=== PATIENT | female | born 1935 | race Caucasian/White ===

== ENCOUNTER 2023-09-12 14:42 | Outpatient (RCR) | payer MEDICARE, SELFPAY | END 2023-09-12 23:59 | disposition home or self-care (01) | LOC: RPT 14:42 | PROVIDERS: ATTENDING PHYSICIAN Student in an Organized Health Care Education/Training Program | DX: I89.0 Lymphedema, not elsewhere classified (principal); M79.651 Pain in right thigh; Z73.6 Limitation of activities due to disability | CPT/HCPCS: 97110; 97162; 97535; 97760 ==

== ENCOUNTER 2023-09-19 15:15 | Outpatient (RCR) | payer MEDICARE, SELFPAY | END 2023-09-19 23:59 | disposition home or self-care (01) | LOC: RPT 15:15 | PROVIDERS: ATTENDING PHYSICIAN Student in an Organized Health Care Education/Training Program | DX: I89.0 Lymphedema, not elsewhere classified (principal); M79.651 Pain in right thigh; Z73.6 Limitation of activities due to disability | CPT/HCPCS: 97110; 97535 ==

== ENCOUNTER 2024-11-14 15:42 | Emergency (ER) | payer OTHER, SELFPAY ==
[2024-11-14 15:53] VITALS: BP 118/54
[2024-11-14 16:34] LABS: ALT (SGPT) 27 U/L (0-35); AST (SGOT) 25 U/L (14-36); Albumin 4.8 g/dl (3.5-5.0); Alkaline Phosphatase 60 U/L (38-126); Blood Urea Nitrogen 22 mg/dl (7-17); Calcium 11.0 mg/dl (8.4-10.2); Carbon Dioxide 23 mmol/L (22-30); Chloride 105 mmol/L (98-107); Glucose 166 mg/dl (70-99); Potassium 4.5 mmol/L (3.5-5.1); Sodium 138 mmol/L (135-145); Total Protein 7.2 g/dl (6.3-8.2); eGFR > 60.00
[2024-11-14 16:51] LABS: Hematocrit 38.6 % (37.0-47.0); Hemoglobin 12.5 g/dL (12.0-16.0); Mean Corp Hgb Conc. 32.4 g/dL (33.0-37.0); Mean Corpuscular Volume 92.6 fL (81.0-99.0); Nucleated Red Blood Cells % 0 %; Platelet Count 309 10^3/uL (130-400); Red Cell Dist. Width 13.8 % (11.5-14.5)
--- NOTE | 2024-11-14 18:16 | ED.CVA ---
History of Present Illness
General
Chief Complaint: CVA/TIA Symptoms
Time Seen by Provider: 11/14/24 18:04
Onset of Stroke Symptoms
Onset of symptoms known: No
Time pt last seen normal is known: No
History of Present Illness
History of Present Illness:
PAST MEDICAL HISTORY AND REVIEW OF OLD RECORDS
- The patient has been described with memory loss in the past, diabetes, high blood pressure, hyperlipidemia
Note:
CHIEF COMPLAINT(S)
Intermittent slurred speech and increased fatigue over the past several days, per the patients daughter.
HISTORY OF PRESENT ILLNESS
The patient is an 89-year-old female whose daughter reports intermittent slurred speech and increased fatigue over several days. The fatigue has been more pronounced today, with the patient sleeping more than usual. Currently, the patient does not
exhibit slurred speech and upon examination, her stroke scale is zero. The patient has no specific complaints and only admits to feeling fatigued upon questioning. Laboratory tests show a calcium level of 11.0; however, her complete blood count
(CBC) and other chemistry results are relatively unremarkable. The patients daughter has also reported recent diarrhea, raising concerns for dehydration.
ADDITIONAL HISTORY OBTAINED FROM SOURCES OTHER THAN THE PATIENT
Per the patients daughter, the patient experienced some diarrhea recently, and there is concern regarding possible dehydration.
PHYSICAL EXAM
General: Alert, no acute distress. Well-appearing.
Skin: Warm, dry.
Head: Normocephalic, atraumatic.
Neck: Supple, trachea midline.
Eye Ears, nose, mouth, and throat: Oral mucosa moist.
Cardiovascular: Normal peripheral perfusion, no edema.
Respiratory: Respirations are non-labored.
Gastrointestinal: Abdomen nondistended.
Back: Normal range of motion, normal alignment.
Musculoskeletal: Normal range of motion, normal strength.
Neurological: Alert and oriented to person, place, time, and situation, no focal neurological deficit observed. Stroke scale is 0.
Psychiatric: Cooperative, appropriate mood & affect.
PLAN
- Intravenous fluids are being administered to address possible dehydration.
- A computed tomography (CT) scan of the head was ordered from triage to assess for any neurological events.
DIFFERENTIAL DIAGNOSIS
The Differential Diagnosis includes, in no particular order and is not limited to:
- Transient ischemic attack (TIA)
- Dehydration
- Hypercalcemia
- Stroke
- Hypothyroidism
- Medication side effects
- Anemia
- Electrolyte imbalance
- Infection
- Neurological disorder
RADIOLOGY
- CT head personally reviewed and I see no acute abnormality
LABS
- White count and hemoglobin are normal, chemistries unremarkable however the calcium slightly high at 11.0 I reviewed old records and she did have calciums that were similar in the past.
UPDATE
- Daughter was concerned about possible dehydration we did give IV fluids. She has remained hemodynamically stable throughout her stay in the Emergency Department.
SUMMARY OF ENCOUNTER
The patient, an 89-year-old female, was seen in the emergency department due to concerns of intermittent slurred speech and increased fatigue over several days, with more pronounced fatigue noted today. The patient was not exhibiting slurred speech
during evaluation and had a stroke scale of zero. Her laboratory tests showed a calcium level of 11.0, which was slightly elevated, but her complete blood count and other chemistry results were unremarkable. Imaging via a CT scan of the head was
obtained to assess for neurological events, with initial independent review revealing no abnormalities, pending confirmation from a radiologist. The patient experienced recent diarrhea, suggesting possible dehydration, and was monitored for fluid
intake.
DISPOSITION
The disposition was not explicitly stated, although the patient appeared stable for outpatient management.
ASSESSMENT
The patient presented with increased fatigue and intermittent slurred speech, possibly due to dehydration, hypercalcemia, or other underlying causes such as transient ischemic attack or medication side effects. Differential diagnosis included
dehydration, hypercalcemia, or a transient neurological event.
EMERGENCY TREATMENTS ADMINISTERED
Intravenous fluids were administered to address suspected dehydration.
PLAN
- Intravenous fluids administration to manage potential dehydration.
- Monitoring of fluid intake and ability to drink water.
INDEPENDENT REVIEW OF LABS AND INTERPRETATION OF TESTS
My independent review of calcium level indicated it was slightly elevated at 11.0, while the complete blood count and other chemistry results appeared unremarkable.
My independent interpretation of the CT scan of the head showed no acute abnormalities, awaiting the radiologists review for confirmation.
MEDICAL DECISION MAKING
-Complexity of Data Reviewed: The differential diagnosis includes transient ischemic attack, dehydration, hypercalcemia, stroke, hypothyroidism, medication side effects, anemia, electrolyte imbalance, infection, or a neurological disorder.
-Data:
Category 1
Clinical information was obtained from the patients daughter regarding recent diarrhea and concerns of dehydration.
Category 2
My independent interpretation of the CT scan showed no acute findings.
-Risk:
Consideration of Admission/Observation: Escalation of care including admission/observation was considered given the complexity and risk of the patients presenting complaint and underlying condition. However, ultimately it was felt the patient was
safe for outpatient management with close follow-up. Reasoning: Work-up reassuring, does not reveal any acute life/organ threatening processes, patients symptoms well controlled upon reevaluation, reexamination is reassuring, vitals are stable,
patient agreeable with discharge, reliable for follow-up.
DIAGNOSIS
Possible Dehydration - ICD-10 E86.0
Hypercalcemia - ICD-10 E83.52
Unable to obtain IV access and the patient was able to drink water without any difficulty. She is not nauseated. She prefers to be discharged at this time as opposed to having an IV placed.
Past History
Past History
ED Past Medical History: HTN, Hypercholesterolemia and NIDDM
ED Past Surgical History: Bowel resection, Gynecological, Orthopedic and Other
Social History
Tobacco: Non-smoker
Alcohol: None
Drug: None
Personal: Partner (Common Law Marriage)
Living: with family
Employment: Employed
Family History
Family History: Other
Phy Exam
Physical Exam
Physical Exam:
See HPI
Course
Orders/Labs/Results
Orders:
Orders
11/14/24 15:59
CT Head W/o Iv Contrast Urgent
Comment:
Reason For Exam: r/o CVA
11/14/24 16:07
Complete Blood Count/With Diff Urgent
Comprehensive Metabolic Panel Urgent
11/14/24 18:15
0.9% Sodium Chloride 500 ml [Nss] 500 ml IV BOLUS
Abnormal Lab Results
11/14/24
16:07
RBC 4.17 L 10^6/uL
(4.20-5.40)
MCHC 32.4 L g/dL
(33.0-37.0)
MPV 12.7 H fL
(7.4-10.4)
Absolute Monos (auto) 0.7 H 10^3/uL
(0.1-0.6)
BUN 22 H mg/dl
(7-17)
Glucose 166 H mg/dl
(70-99)
Calcium 11.0 H mg/dl
(8.4-10.2)
11/14/24 16:07
11/14/24 16:07
Vital Signs
Initial and Last Documented VS:
Initial Vital Signs
Temp Pulse Resp BP Pulse Ox
36.5 C 65 18 118/54 96
11/14/24 15:53 11/14/24 15:53 11/14/24 15:53 11/14/24 15:53 11/14/24 15:53
Last Documented Vital Signs
Temp Pulse Resp BP Pulse Ox
36.5 C 65 18 118/54 96
11/14/24 15:53 11/14/24 15:53 11/14/24 15:53 11/14/24 15:53 11/14/24 18:18
*Pulse Oximetry
SaO2: 96
Oxygen Mode of Delivery: Room air
Patient hypoxic: no
*Critical Care Note
Total Time (30-74mins, 75-104mins- exclusive of procedures): Not Applicable
ED Attending Note
-
Portions of this chart may have been created with voice recognition software.� Occasional wrong word or��sound alike� substitutions may have occurred due to the inherent limitations of voice recognition software.
Discharge Plan
Departure
Prescriptions:
No Action
zolpidem 5 MG tablet
5 mg PO HSPRN PRN (Reason: insomnia)
Patient Comments:
10/01/2020: last filled 09/22/20, 30 tabs for 30 days from [id number]
vitamin A-vitamin C-vit E-min [Vision] 1 EACH tablet
1 tab PO BID
atenolol 50 MG tablet
25 mg PO BID
duloxetine 60 MG capsule,delayed release(DR/EC)
60 mg PO DAILY
mupirocin 1 APPLIC ointment
1 applic intranasal BID Qty: 1 0RF
Patient Comments:
Patient administered this medication @07:00 this morning. Patient started this medication on 02/01/21 in the morning.
Rx Instructions:
Has from previous procedure.
celecoxib 200 MG capsule
200 mg PO DAILY Qty: 30 0RF
Rx Instructions:
Take with food.
Do not take within 2 hours of Aspirin.
sennosides [senna] 1 TABLET tablet
2 tab PO BID 0RF
aspirin 325 MG tablet
325 mg PO DAILY Qty: 28 0RF
Rx Instructions:
Take daily x4 weeks for blood clot prevention.
magnesium hydroxide 30 ML suspension
30 ml PO DAILYPRN PRN (Reason: constipation) 0RF
docusate sodium 100 MG capsule
100 mg PO BID 0RF
oxycodone 5 MG tablet
5 mg PO Q6HPRN PRN (Reason: moderate-severe pain) Qty: 30 0RF
Rx Instructions:
1 tab moderate pain or 2 if pain severe
Dx total joint replacement
ongoing therapy
cefadroxil [Duricef] 500 MG capsule
500 mg PO Q12 Qty: 14 0RF
Rx Instructions:
Start night of discharge and take every 12 hours until finished.
Take probiotic while on antibiotic.
Saccharomyces boulardii 250 MG capsule
250 mg PO BID Qty: 14 0RF
Rx Instructions:
Over the counter. Take while on antibiotic.
If unavailable, choose another probiotic.
lisinopril 20 MG tablet
20 mg PO BID Qty: 0 0RF
Rx Instructions:
Hold if systolic blood pressure <130 while on Oxycodone.
amlodipine 5 MG tablet
5 mg PO DAILY Qty: 0 0RF
Rx Instructions:
Hold if systolic blood pressure <130 while on Oxycodone.
acetaminophen [Tylenol Extra Strength] 500 MG tablet
1,000 mg PO Q6H Qty: 0 0RF
Rx Instructions:
Do not exceed >4000 mg daily.
furosemide 20 MG tablet
20 mg PO DAILY Qty: 0 0RF
Rx Instructions:
Hold if systolic blood pressure <140 while on Oxycodone.
glucosamine HCl 1,500 MG tablet
1,500 mg PO QPM Qty: 0 0RF
Rx Instructions:
Resume in 1 week.
[place]-3 EC Softgel 1 CAPSULE Capsule
1 cap PO QPM Qty: 0 0RF
Rx Instructions:
Resume in 1 week.
cyclobenzaprine 10 mg tablet
10 mg PO BID PRN (Reason: muscle spasm) Qty: 14 0RF
atorvastatin 20 MG tablet
20 mg PO DAILY
metformin 500 MG tablet
500 mg PO DAILY
Patient Comments:
changed to once a day per patient due to diarrhea.
Referrals:
Amy Ernandez MD [Family Provider, Internal Medicine]
Interventions
Interventions:
*Risk Screen - Suicide Last Done: 11/14/24 15:58
*General Assessment Last Done: 11/14/24 15:58
*ED COVID-19 Vaccine History Last Done: 11/14/24 15:58
Discharge Date and Time
Print Language: CROATIAN
[2024-11-14 19:11] VITALS: BP 167/61
[2024-11-14 19:52] VITALS: BP 166/63
== END 2024-11-14 20:05 | disposition home or self-care (01) ==
LOC: EMR 15:42
PROVIDERS: EMERGENCY PHYSICIAN Emergency Medicine; FAMILY PHYSICIAN Student in an Organized Health Care Education/Training Program
DX: R47.81 Slurred speech (principal); R53.83 Other fatigue; E11.9 Type 2 diabetes mellitus without complications; E78.00 Pure hypercholesterolemia, unspecified; I10 Essential (primary) hypertension; E83.52 Hypercalcemia
CPT/HCPCS: 99284; 70450; 80053; 85025

== ENCOUNTER 2025-02-13 12:42 | Inpatient (IN) | payer OTHER, SELFPAY ==
[2025-02-13] VITALS (18 sets, daily range): BP systolic 99–176; BP diastolic 46–68; PULSE 71–74; O2SAT 97–98; BMI 26.6
--- NOTE | 2025-02-13 07:18 | ED.GENMED ---
History of Present Illness
<Johnny Damon PA-C - Last Filed: 02/13/25 08:56>
General
Chief Complaint: Fall
Source: patient and spouse
Time Seen by Provider: 02/13/25 07:04
History of Present Illness
History of Present Illness:
89 year old female presenting to the ER with EMS for evaluation after she experienced an accidental fall while getting up from bed to go to the bathroom last night noting that her walker collapsed causing her to fall, EMS noting significant
deformity to the LLE and patient with inability to ROM or ambulate 2/2 the pain. Patient denies any other injuries, head injury, LOC, vomiting, focal weakness/numbness, blood thinners. No other extremity injuries noted. Patient notes she has seen
[facility] in the past for previous orthopedic injuries.
Past History
<Johnny Damon PA-C - Last Filed: 02/13/25 08:56>
Past History
ED Past Medical History: HTN, Hypercholesterolemia and NIDDM
ED Past Surgical History: Bowel resection, Gynecological, Orthopedic and Other
Social History
Tobacco: Non-smoker
Alcohol: None
Drug: None
Personal: Partner (Common Law Marriage)
Living: with family
Employment: Employed
Family History
Family History: Other
Review of Systems
<Johnny Damon PA-C - Last Filed: 02/13/25 08:56>
Review of Systems
All Other Systems: ROS reviewed and negative except as documented in HPI and ROS
Phy Exam
<Johnny Damon PA-C - Last Filed: 02/13/25 08:56>
Physical Exam
Physical Exam:
GENERAL: Alert , in no apparent distress
EYE: clear conjunctiva b/l
HEAD: NCAT
ENT: o/p clr, mmm.
CARDIAC: Regular rate and rhythm .
LUNGS: Clear breath sounds bilaterally, no acute respiratory distress, no wheezes/rales/rhonchi. no chest wall ttp
ABDOMEN: Soft, without focal tenderness, no r/g, no cvat
NEUROLOGICAL: Alert and oriented
SKIN: Warm and dry, skin intact.
MUSCULOSKELETAL: LLE: shortened and rotated. Unable to ROM the left hip. No focal ttp to the left distal femur/knee/ankle/foot. Easily palpable pedal/tibial pulse. CR < 2 sec. sensation grossly intact to light touch. Remainder of extremity is WNL
PSYCH: Normal and appropriate interaction.
Scores
<Johnny Damon PA-C - Last Filed: 02/13/25 08:56>
Heart Failure Risk
Heart Failure Risk Score: Not Applicable
Heart Score for Chest Pain Patients
STEMI patient?: Not applicable
Withdrawal Assessment of Alcohol
Withdrawal Assessment Completed?: Not applicable
Course
<Johnny Damon PA-C - Last Filed: 02/13/25 08:56>
Orders/Labs/Results
Orders:
Orders
02/13/25
CR Pelvis - 1 Or 2 Views Urgent
Reason For Exam: FALL
02/13/25 07:17
HYDROmorphone [Dilaudid] 1 mg IV NOW STA
CR Femur - Left Min 2 Vw Urgent
Reason For Exam: fall, deformity
02/13/25 07:21
Type+Screen Urgent
Basic Metabolic Panel Urgent
Complete Blood Count/With Diff Urgent
02/13/25 07:53
Oxygen Mask - Simple [RESP] Urgent
Oxygen Therapy [O2 Therapy] [RESP] Urgent
Nasal Cannula Liter Flow: 2 LPM
Titrate/Wean O2 to maintain O2 sat greater than (%): 93
Wean Oxygen to Pre Admission Baseline Therapy-if applicable: Yes
Contact provider if nasal cannula O2 requirement > 6 liters: Yes
02/13/25 08:13
PTT Stat
Prothrombin Time Stat
02/13/25 08:33
Electrocardiogram (*1) Urgent
Reason for Study: PreOp
EKG- Treatment ONCE
Abnormal Lab Results
02/13/25
07:21
MCHC 31.2 L g/dL
(33.0-37.0)
MPV 12.8 H fL
(7.4-10.4)
Absolute Lymphs (auto) 5.0 H 10^3/uL
(1.2-3.4)
Absolute Monos (auto) 1.0 H 10^3/uL
(0.1-0.6)
Neutrophils % 36.5 L %
(42.2-75.2)
Monocytes % 9.4 H %
(1.7-9.3)
BUN 18 H mg/dl
(7-17)
Glucose 138 H mg/dl
(70-99)
02/13/25 07:21
02/13/25 07:21
Vital Signs
Initial and Last Documented VS:
Initial Vital Signs
Temp Pulse Resp BP Pulse Ox
97.8 F 64 18 176/67 94
02/13/25 07:06 02/13/25 07:06 02/13/25 07:06 02/13/25 07:06 02/13/25 07:06
Last Documented Vital Signs
Temp Pulse Resp BP Pulse Ox
97.8 F 66 12 172/65 98
02/13/25 07:06 02/13/25 08:10 02/13/25 08:10 02/13/25 08:10 02/13/25 08:30
Gertrudislt;Hiram Anderson, DO - Last Filed: 02/13/25 08:54>
Orders/Labs/Results
Orders:
Orders
02/13/25
CR Pelvis - 1 Or 2 Views Urgent
Reason For Exam: FALL
02/13/25 07:17
HYDROmorphone [Dilaudid] 1 mg IV NOW STA
CR Femur - Left Min 2 Vw Urgent
Reason For Exam: fall, deformity
02/13/25 07:21
Type+Screen Urgent
Basic Metabolic Panel Urgent
Complete Blood Count/With Diff Urgent
02/13/25 07:53
Oxygen Mask - Simple [RESP] Urgent
Oxygen Therapy [O2 Therapy] [RESP] Urgent
Nasal Cannula Liter Flow: 2 LPM
Titrate/Wean O2 to maintain O2 sat greater than (%): 93
Wean Oxygen to Pre Admission Baseline Therapy-if applicable: Yes
Contact provider if nasal cannula O2 requirement > 6 liters: Yes
02/13/25 08:13
PTT Stat
Prothrombin Time Stat
02/13/25 08:33
Electrocardiogram (*1) Urgent
Reason for Study: PreOp
EKG- Treatment ONCE
Abnormal Lab Results
02/13/25
07:21
MCHC 31.2 L g/dL
(33.0-37.0)
MPV 12.8 H fL
(7.4-10.4)
Absolute Lymphs (auto) 5.0 H 10^3/uL
(1.2-3.4)
Absolute Monos (auto) 1.0 H 10^3/uL
(0.1-0.6)
Neutrophils % 36.5 L %
(42.2-75.2)
Monocytes % 9.4 H %
(1.7-9.3)
BUN 18 H mg/dl
(7-17)
Glucose 138 H mg/dl
(70-99)
02/13/25 07:21
02/13/25 07:21
Vital Signs
Initial and Last Documented VS:
Initial Vital Signs
Temp Pulse Resp BP Pulse Ox
97.8 F 64 18 176/67 94
02/13/25 07:06 02/13/25 07:06 02/13/25 07:06 02/13/25 07:06 02/13/25 07:06
Last Documented Vital Signs
Temp Pulse Resp BP Pulse Ox
97.8 F 66 12 172/65 98
02/13/25 07:06 02/13/25 08:10 02/13/25 08:10 02/13/25 08:10 02/13/25 08:30
<Johnny Damon PA-C - Last Filed: 02/13/25 08:56>
MDM/Problems Addressed
Differential Diagnosis Includes:
Hip/pelvic fracture
Dislocation
Accidental fall
Syncope
CVA/TIA
ICH
MDM/Problems Addressed:
89 year old female presents to ED with EMS for evaluation of LLE deformity following accidental fall when her walker collapsed on her. Obvious deformity noted at my exam. Concern for left hip/pelvic fracture. XR ordered. Pre-op labs ordered.
Dilaudid for pain control. Will consult ortho upon completion of imaging. Plan to admit to hospitalist service
<Johnny Damon PA-C - Last Filed: 02/13/25 08:56>
*Radiology
Radiology exam reviewed: preliminary read by ED provider (Midshaft left femur fracture)
*Pulse Oximetry
SaO2: 94
Oxygen Mode of Delivery: Room air
Patient hypoxic: no
*EKG
Interpreted by ED Provider?: Yes
Heart Rate: 67
Rate: normal
Rhythm: sinus
[place]: normal axis
QRS Pattern: right bundle branch block
*Photocopying Equipment Repairer Interpretation
Rate: normal
Heart Rate: 71
Rhythm: sinus
*Critical Care Note
Total Time (30-74mins, 75-104mins- exclusive of procedures): Not Applicable
<Johnny Damon PA-C - Last Filed: 02/13/25 08:56>
Patient Management
Discussion with other providers: Hospitalist and Senior Procurement Manager
Escalation/DeEscalation of care consider admission/obs:
Both the hospitalist team and orthopedic team were consulted. Orthopedics to take patient to the OR today for repair. Patient to be kept NPO. Preoperative labs and EKG ordered.
ED Attending Note
<Johnny Damon PA-C - Last Filed: 02/13/25 08:56>
-
Portions of this chart may have been created with voice recognition software.� Occasional wrong word or��sound alike� substitutions may have occurred due to the inherent limitations of voice recognition software.
<Hiram Anderson DO - Last Filed: 02/13/25 08:54>
ED Attending Note
Patient seen and examined by attending physician: Yes
I performed the substantive portion of visit, reviewed & personally made and approve the management plan that is documented in note by myself or ELLE.: Yes
ED Attending Note:
Seen with PA examined independently elderly female status post left total knee with Dr. Linda presents with a left midshaft femur fracture after a fall, no blood thinners, denies head strike, labs EKG are noted
Discharge Plan
Departure
Patient Disposition: Admit
Date of Disposition: 02/13/25
Time of Disposition: 08:27
Presentation/result/management discussed w/ accepting MD/DO: Hospitalist
Discharge Problem:
Fracture of left femur, Accidental fall
Prescriptions:
No Action
zolpidem 5 MG tablet
5 mg PO HSPRN PRN (Reason: insomnia)
atenolol 50 MG tablet
25 mg PO BID
duloxetine 60 MG capsule,delayed release(DR/EC)
60 mg PO DAILY
lisinopril 20 MG tablet
20 mg PO BID Qty: 0 0RF
amlodipine [Norvasc] 10 mg Tablet
10 mg PO DAILY
acetaminophen [Tylenol Extra Strength] 500 MG tablet
500 mg PO BID
glipizide 2.5 mg Tablet Extended Release 24hr
2.5 mg PO DAILY
metformin 1,000 mg Tablet
1,000 mg PO BID
gabapentin 300 mg Capsule
300 mg PO BID
gabapentin 100 mg Capsule
100 mg PO BID
oxycodone 5 mg Tablet
5 mg PO BID
Jardiance 10 mg Tablet
10 mg PO DAILY
atorvastatin 20 MG tablet
20 mg PO QPM
Referrals:
UNKNOWN - PT NOT,INTERVIEWE [Family Provider]
Interventions
Interventions:
*Risk Screen - Suicide Last Done: 02/13/25 07:06
*General Assessment Last Done: 02/13/25 07:06
*Neglect/Abuse Screening Last Done: 02/13/25 07:06
*ED- Fall Risk Assessment Last Done: 02/13/25 07:06
*ED COVID-19 Vaccine History Last Done: 02/13/25 07:06
*ED Influenza Vaccine History Last Done: 02/13/25 07:06
ED-Musculoskeletal Assessment Last Done: 02/13/25 07:30
ED- Neurological Assessment Last Done: 02/13/25 07:30
ED-Skin Assessment Last Done: 02/13/25 07:30
Discharge Date and Time
Print Language: LAO
[2025-02-13] MEDS: DILAUDID 1 MG IV (07:24)
[2025-02-13 07:32] LABS: Hematocrit 42.6 % (37.0-47.0); Hemoglobin 13.3 g/dL (12.0-16.0); Mean Corp Hgb Conc. 31.2 g/dL (33.0-37.0); Mean Corpuscular Volume 96.6 fL (81.0-99.0); Platelet Count 273 10^3/uL (130-400); Red Cell Dist. Width 13.5 % (11.5-14.5)
[2025-02-13 07:41] LABS: Blood Urea Nitrogen 18 mg/dl (7-17); Calcium 10.0 mg/dl (8.4-10.2); Carbon Dioxide 25 mmol/L (22-30); Chloride 106 mmol/L (98-107); Estimated Creatinine Clearance 60 ml/min; Glucose 138 mg/dl (70-99); Potassium 4.1 mmol/L (3.5-5.1); Sodium 137 mmol/L (135-145); eGFR > 60.00
[2025-02-13 07:52] LABS: Nucleated Red Blood Cells % 0 %
[2025-02-13 08:28] LABS: INR 0.83; PT 11.9 Sec (11.4-14.6)
[2025-02-13 08:29] LABS: APTT 27.1 Sec (23.4-35.0)
--- NOTE | 2025-02-13 08:56 | W.PN.UPDATE ---
Update Note
Progress Note Update
Pt seen and examined. The pt is medically optimized for orthopedic surgery and may proceed to the OR without further preoperative cardiac testing. Full H&P to follow.
--- NOTE | 2025-02-13 08:59 | HPS.HSE ---
Family Physician
-
Family Physician: INTER[facility] UNKNOWN - PT NOT
Chief Complaint
-
Mechanical fall resulting in L femur fx
History of Present Illness
89 y/o F with PMHx:
DM2
Essential HTN
HLD
p/w mechanical fall while using her rollator were resulting in a left femur fracture. At the time of the fall the patient had no chest pain or syncope. This was a mechanical fall. The patient states she has been in her usual state of health. At
baseline the patient ambulates with a rollator. When she ambulates she denies any chest pain or shortness of breath. She denies any recent lower extremity edema or orthopnea. She denies any chest pain at rest. Prior to the fall she was in her
usual state of health.
Medical History
Past Medical History
Past Medical History: Reports Other (as per HPI)
Past Surgical History: Reports Other (N/A)
Social History
Tobacco: Non-smoker
Alcohol: None
Drug: None
Family History
Family History: Not pertinent
Allergies / Home Medications
Allergies reflects when Allergies were last updated in [facility].
Home Medications with original date entered in [facility]
Allergy/Medication List:
Allergies
Allergy/AdvReac Type Severity Reaction Status Date / Time
No Known Allergies Allergy Verified 02/13/25 07:03
Home Medications
zolpidem 5 mg tablet 5 mg PO HSPRN PRN insomnia 12/05/11
atorvastatin 20 mg tablet 20 mg PO QPM High cholesterol 09/06/12
atenolol 50 mg tablet 25 mg PO BID Blood pressure 10/01/20
duloxetine 60 mg capsule,delayed release 60 mg PO DAILY Neurological Condition 10/01/20
lisinopril 20 mg tablet 20 mg PO BID Blood pressure ##0 02/05/21
acetaminophen 500 mg tablet (Tylenol Extra Strength) 500 mg PO BID mild pain 02/13/25
amlodipine 10 mg tablet (Norvasc) 10 mg PO DAILY Blood Pressure 02/13/25
empagliflozin 10 mg tablet (Jardiance) 10 mg PO DAILY Diabetes 02/13/25
gabapentin 100 mg capsule 100 mg PO BID Neurological Condition 02/13/25
gabapentin 300 mg capsule 300 mg PO BID Neurological Condition 02/13/25
glipizide 2.5 mg tablet, extended release 24 hr 2.5 mg PO DAILY Diabetes 02/13/25
metformin 1,000 mg tablet 1,000 mg PO BID Diabetes 02/13/25
oxycodone 5 mg tablet 5 mg PO BID severe pain 02/13/25
Review of Systems
-
History Source: Patient
A 12 point ROS was completed and negative except as noted: Yes
Physical Exam
Vital Signs
Vital Signs
Temp Pulse Resp BP Pulse Ox
97.8 F 66 12 172/65 98
02/13/25 07:06 02/13/25 08:10 02/13/25 08:10 02/13/25 08:10 02/13/25 08:30
Physical Exam
General: Other (.)
Laboratory Results
-
02/13/25 07:21
02/13/25 07:21
Laboratory Results
PT 11.9 Sec (11.4-14.6) 02/13/25 08:13
INR 0.83 02/13/25 08:13
APTT 27.1 Sec (23.4-35.0) 02/13/25 08:13
Impression/Plan
-
Gen: NAD, AAOx3.
Eyes: EOMI, PERRLA, no scleral icterus.
Neck: supple.
CV: RRR, +S1/S2, no m/r/g.
Resp: CTAB, no rales, wheezes, or rhonchi.
Abd: +BS, soft, NT, ND
Skin: No rashes.
Neuro: CN 2-12 intact, non-focal.
Psych: Normal mood and affect.
L femur Xray (read my me): midshaft misaligned L femur fx
ECG (read by me): NSR @ 67, nl axis, RBBB, QTc 475ms, no acute ST changes
Acute traumatic L femur fx:
-also suspect underlying osteoporosis (at age 89) that contributed to the patient's femur fracture
-the pt is medically optimized for orthopedic surgery and may proceed to the OR without further preoperative cardiac testing as pt is very low risk for having a cardiac event perioperatively
-discussed with Dr. Linda, for OR today
-NPO, pain control
DM2:
-check a1c
-hold home Metformin/Glipizide/Jardiance today, likely resume tomorrow
-SSI/accuchecks
Essential HTN:
-cont Norvasc/Atenolol/lisinopril
HLD:
-cont statin
FULL/Lovenox
[2025-02-13 12:53] LABS: Glucose - Point of Care 163 mg/dl (70-99)
[2025-02-13] MEDS: DILAUDID 0.25 MG IV ×2 (13:26→13:41)
--- NOTE | 2025-02-13 14:23 | PTCARENOTE ---
Pt arrived to [facility] in a bed. 4 left leg dressings. Upper left leg and middle leg c/d/i. Lateral knee dressing and anterior knee dressing with small sanguineous drainage reinforced with abd pad and tape. 98% on 2L. Diminished at the bases. Left FA
bruise. Foot pumps and thigh high teds on pt. Admission questions answered. Daughter at bedside, Bed locked and in lowest position. Care ongoing.
[2025-02-13] MEDS: NORMOSOL-R/PLASMALYTE-A 1000 IV (14:59)
[2025-02-13] MEDS: NOVOLOG FLEXPEN-LOW RESISTANCE SC (15:54)
[2025-02-13 16:19] LABS: Glucose - Point of Care 204 mg/dl (70-99)
[2025-02-13] MEDS: TYLENOL 650 MG PO ×2 (16:46→20:43)
[2025-02-13] MEDS: NOVOLOG FLEXPEN-LOW RESISTANCE 2 UNITS SC (16:47)
[2025-02-13] MEDS: LIPITOR 20 MG PO (18:12)
[2025-02-13] MEDS: ASPIRIN 325 MG PO (18:12)
[2025-02-13] MEDS: ROXICODONE 5 MG PO (18:14)
[2025-02-13] MEDS: ANCEF 5 IV (20:43)
[2025-02-13] MEDS: COLACE 100 MG PO (20:43)
[2025-02-13] MEDS: NEURONTIN 300 MG PO (20:44)
[2025-02-13] MEDS: NEURONTIN 100 MG PO (20:44)
[2025-02-13] MEDS: ZESTRIL 20 MG PO (20:44)
[2025-02-13] MEDS: TENORMIN 25 MG PO (20:44)
[2025-02-13] MEDS: SENOKOT 17.2 MG PO (20:45)
[2025-02-13 21:31] LABS: Glucose - Point of Care 233 mg/dl (70-99)
[2025-02-14 03:00] VITALS: BP 127/52
[2025-02-14] MEDS: NORMOSOL-R/PLASMALYTE-A 1000 IV (03:50)
[2025-02-14] MEDS: ANCEF 5 IV (03:51)
[2025-02-14] MEDS: TYLENOL PO ×2 (04:53)
[2025-02-14] MEDS: TYLENOL 650 MG PO ×6 (05:46→23:22)
[2025-02-14] MEDS: FLOMAX 0.4 MG PO (05:46)
[2025-02-14 07:30] VITALS: BP 114/46
[2025-02-14 07:32] LABS: Glucose - Point of Care 139 mg/dl (70-99)
[2025-02-14] MEDS: ZESTRIL PO (08:00)
[2025-02-14] MEDS: NORVASC PO (08:00)
[2025-02-14] MEDS: NOVOLOG FLEXPEN-LOW RESISTANCE SC (08:00)
[2025-02-14] MEDS: TENORMIN PO (08:00)
[2025-02-14] MEDS: ASPIRIN 325 MG PO (09:02)
[2025-02-14] MEDS: NEURONTIN 100 MG PO ×2 (09:03→20:05)
[2025-02-14] MEDS: COLACE 100 MG PO ×2 (09:03→20:05)
[2025-02-14] MEDS: SENOKOT 17.2 MG PO ×2 (09:03→20:05)
[2025-02-14] MEDS: NEURONTIN 300 MG PO ×2 (09:03→20:05)
[2025-02-14] MEDS: CYMBALTA DELAYED RELEASE 60 MG PO (09:10)
[2025-02-14 09:56] VITALS: BP 108/30; BP 112/46; BP 95/37; PULSE 68; O2SAT 98
--- NOTE | 2025-02-14 09:57 | W.PN.HOSP.TC ---
Today's Communication/Plan
-
see plan
Assessment / Plan
Assessment / Plan
Gen: NAD, AAOx3.
Eyes: EOMI, PERRLA, no scleral icterus.
Neck: supple.
CV: remains RRR, +S1/S2, no m/r/g.
Resp: remains CTAB, no rales, wheezes, or rhonchi.
Abd: +BS, soft, NT to light palpation, ND
Skin: No rashes.
Neuro: CN 2-12 intact, non-focal.
Psych: Normal mood and affect.
L femur Xray (read my me): midshaft misaligned L femur fx
ECG (read by me): NSR @ 67, nl axis, RBBB, QTc 475ms, no acute ST changes
Acute traumatic L femur fx:
-also suspect underlying osteoporosis (at age 89) that contributed to the patient's femur fracture
-s/p 02/13 Gio placement to the left femoral shaft fracture-22 modifier
-pain control
Acute blood loss anemia due to surgery:
-trend Hb
-transfuse for Hb < 7
Other problems:
DM2: a1c pending, diabetic diet/SSI/accuchecks, resume home Metformin/Glipizide/Jardiance
Essential HTN: cont Norvasc/Atenolol/lisinopril
HLD: cont statin
FULL/Lovenox
Dispo: goal for d/c 02/15
Anticipated Discharge: Within 24 hours
Subjective/Interval History
-
Date of Service: February 14, 2025
Pt reports mild abd pain.
Objective Data
-
Vital Signs:
Vital Signs
Temp Pulse Resp BP Pulse Ox
98.4 F 57 18 114/46 98
02/14/25 07:30 02/14/25 07:30 02/14/25 07:30 02/14/25 08:00 02/14/25 07:30
I&O
02/13/25 02/14/25 02/15/25
06:59 06:59 06:59
Intake Total 1740 / 1740
Output Total 160 / 160
Balance 1580 / 1580
[2025-02-14 10:18] LABS: Blood Urea Nitrogen 22 mg/dl (7-17); Calcium 8.9 mg/dl (8.4-10.2); Carbon Dioxide 28 mmol/L (22-30); Chloride 103 mmol/L (98-107); Estimated Creatinine Clearance 45 ml/min; Glucose 137 mg/dl (70-99); Potassium 5.0 mmol/L (3.5-5.1); Sodium 133 mmol/L (135-145); eGFR > 60.00
[2025-02-14 10:22] LABS: Hematocrit 26.8 % (37.0-47.0); Hemoglobin 8.5 g/dL (12.0-16.0); Mean Corp Hgb Conc. 31.7 g/dL (33.0-37.0); Mean Corpuscular Volume 94.7 fL (81.0-99.0); Platelet Count 181 10^3/uL (130-400); Red Cell Dist. Width 13.5 % (11.5-14.5)
[2025-02-14 11:32] VITALS: BP 107/35
[2025-02-14 12:10] LABS: Glucose - Point of Care 219 mg/dl (70-99)
[2025-02-14 12:13] LABS: Glycohemoglobin (HgbA1c) 6.6 % (4.0-5.9)
[2025-02-14] MEDS: GLUCOTROL XL (EXTENDED RELEASE) 2.5 MG PO (12:21)
[2025-02-14] MEDS: GLUCOPHAGE 1000 MG PO ×2 (12:21→20:06)
[2025-02-14] MEDS: NOVOLOG FLEXPEN-LOW RESISTANCE 2 UNITS SC (12:22)
[2025-02-14] MEDS: FARXIGA 10 MG PO (12:22)
--- NOTE | 2025-02-14 14:37 | W.PN.ORTHO ---
Today's Communication / Plan
-
PT
Dispo planning
Assessment
.
Distal Motor Intact: Yes
Dressing:
Clean, dry and intact.
Assessment:
POD#1 Left femur retrograde nail fixation for periprosthetic fracture
Plan
.
Surgery / Date: 02/13
Activity:
Out of bed.
PT/OT
Discharge Plan: Home w/ Outpatient PT
Subjective
.
.:
Patient resting comfortably.
Did well with PT today
Vital Signs and Labs
.
Vital Signs and Labs:
Lab Results
02/14/25 10:05
02/14/25 10:05
Temp Pulse Resp BP Pulse Ox
98.1 F 67 18 107/35 98
02/14/25 11:32 02/14/25 11:32 02/14/25 11:32 02/14/25 11:32 02/14/25 11:32
PT 11.9 Sec (11.4-14.6) 02/13/25 08:13
INR 0.83 02/13/25 08:13
Physical Exam
-
Left LE: Dressing intact. Intact ROM of ankle and toes. Sensation intact. Well perfused distally
[2025-02-14 15:29] VITALS: BP 94/39
[2025-02-14] MEDS: ROXICODONE 5 MG PO (15:47)
--- NOTE | 2025-02-14 15:57 | PTCARENOTE ---
Patient complaining of left rib pain and difficulty coughing.Lung sounds are shallow and a course.She is currently on 2 liters of oxygen.Will encourage use of incentive spirometer.
[2025-02-14 16:32] LABS: Glucose - Point of Care 253 mg/dl (70-99)
[2025-02-14] MEDS: NOVOLOG FLEXPEN-LOW RESISTANCE 3 UNITS SC (17:08)
[2025-02-14] MEDS: LIPITOR 20 MG PO (17:09)
[2025-02-14] MEDS: TENORMIN 25 MG PO (20:05)
[2025-02-14] MEDS: ZESTRIL 20 MG PO (20:06)
[2025-02-14 21:37] LABS: Glucose - Point of Care 231 mg/dl (70-99)
[2025-02-14 23:00] VITALS: BP 98/37
[2025-02-15] VITALS (7 sets, daily range): BP systolic 112–137; BP diastolic 44–60; PULSE 78; O2SAT 88
[2025-02-15] MEDS: ROXICODONE 5 MG PO ×3 (03:11→20:37)
[2025-02-15] MEDS: TYLENOL PO (04:29)
--- NOTE | 2025-02-15 05:08 | W.PN.UPDATE ---
Update Note
Progress Note Update
RN reports patient been complaining of pain at the right sided pain overnight. Also complaining of having difficulty with coughing and deep breathing.
Stable VS. Patient seen and evaluated.
Patient resting in bed at present. AA forgetful. received pain medication 2 hours ago
States she has no pain at present with resting. Upon palpation and turning, patient stated pain at the right shoulder, right flank, right back, right upper quadrant, she is able to move her right arm without any difficulty.
noted patient tenses up with assessment.
.
negative flatus. denies nausea but states she tries to belch, recent bowel movement per patient
Lungs with mild rales Right base, HR Regular + BS 4 Quadrant, abd distended, mildly tender, voiding without difficulty
Patient is also concerned about going home
worried who's going to take care of her at home.
Reassurance provided.
will do US abdomen r/o gallbladder problems , chest Xray to r/o pneumonia
[2025-02-15 06:07] LABS: Hematocrit 25.1 % (37.0-47.0); Hemoglobin 8.1 g/dL (12.0-16.0); Mean Corp Hgb Conc. 32.3 g/dL (33.0-37.0); Mean Corpuscular Volume 94.4 fL (81.0-99.0); Platelet Count 167 10^3/uL (130-400); Red Cell Dist. Width 13.9 % (11.5-14.5)
[2025-02-15 06:19] LABS: Blood Urea Nitrogen 28 mg/dl (7-17); Calcium 9.0 mg/dl (8.4-10.2); Carbon Dioxide 28 mmol/L (22-30); Chloride 105 mmol/L (98-107); Estimated Creatinine Clearance 45 ml/min; Glucose 90 mg/dl (70-99); Potassium 4.6 mmol/L (3.5-5.1); Sodium 133 mmol/L (135-145); eGFR > 60.00
[2025-02-15 07:23] LABS: Glucose - Point of Care 110 mg/dl (70-99)
--- NOTE | 2025-02-15 07:28 | W.PN.UPDATE ---
Update Note
Progress Note Update
Ms. Hester is POD2 following her left femur retrograde nail performed by Dr. Linda. She is resting comfortably in bed this morning. She does endorse continued pain about the knee and thigh. Patient was seen early this morning due to complaints of
pain on her right side. US and CXR have been ordered to rule out gall stones and pneumonia.
Directed exam of the left lower extremity reveal surgical dressings with slight strikethrough of dried blood. Otherwise dry and intact. Thigh soft and compressible. Calf soft and nontender. Neurovascularly intact distally.
Hgb 8.1 this AM.
89 yo F POD2 left femur retrograde nail under the direction of Dr. Linda
--WBAT to LLE with walker. We appreciate the assistance of PT/OT.
--Recommend ASA 325 mg daily x4 weeks for DVT ppx, otherwise per primary.
--Pain control prn. Ice and elevation for pain and edema control.
--Maintain surgical dressing until 7-10 days post-op. Staple removal at 2 weeks post-op.
--Case management for dc planning.
--Patient is stable post-operatively from an orthopedic standpoint. Orthopedics will sign off for now. Please reach out with any additional orthopedic questions or concerns.
--- NOTE | 2025-02-15 08:09 | W.PN.HOSP.TC ---
Today's Communication/Plan
-
see plan
Assessment / Plan
Assessment / Plan
Gen: NAD, AAOx3.
Eyes: EOMI, PERRLA, no scleral icterus.
Neck: supple.
CV: RRR, +S1/S2, 2/6 systolic murmur
Resp: CTAB anteriorly, no rales, wheezes, or rhonchi.
Abd: +BS, soft, NT, ND
Skin: No rashes.
Neuro: CN 2-12 intact, non-focal.
Psych: Normal mood and affect.
L femur Xray: Acute, displaced fracture through the midshaft of the LEFT femur.
ECG (read by me): NSR @ 67, nl axis, RBBB, QTc 475ms, no acute ST changes
CXR: Right lung base opacity, pneumonia versus atelectasis either in the right middle lobe or right lower lobe. Minor atelectasis in the medial left lung base. No pneumothorax or congestive heart failure. Nondisplaced right lateral seventh rib
fracture. Displaced lateral right eighth and ninth rib fractures, with displacement up to 7 mm.
Abd Xray: Mild to moderate amount of gas within small and large bowel. However, no disproportionate or gross dilatation. Nondisplaced lateral right seventh rib fracture and displaced lateral right eighth through 10th rib fractures. Age indeterminant
mild to moderate compression deformity of T9. Questionable mild age indeterminate diminished stature of T10 and T11. Advanced bilateral hip arthritis, right greater than left, with protrusio acetabulum. Similar prior examination.
Acute traumatic L femur fx:
-also suspect underlying osteoporosis (at age 89) that contributed to the patient's femur fracture
-s/p 02/13 Gio placement to the left femoral shaft fracture-22 modifier
-pain control
R-sided rib fxs:
-accounts for RUQ abd pain
-acute hypoxic resp insufficiency due to splinting, on 2L NC O2
-IS
-place Lidoderm patch
Acute blood loss anemia due to surgery:
-trend Hb (now stable)
-transfuse for Hb < 7
Other problems:
DM2: a1c 6.6%, diabetic diet/SSI/accuchecks, cont home Metformin/Glipizide/Jardiance
Essential HTN: cont Norvasc/Atenolol/lisinopril
HLD: cont statin
FULL/Lovenox
Medically cleared for d/c, case management aware.
Anticipated Discharge: Today
Subjective/Interval History
-
Date of Service: February 15, 2025
Overnight pt had RUQ abd pain. Currently denies CP/SOB.
Objective Data
-
Labs:
Laboratory Results
02/15/25
05:23
WBC 13.3 H
Hgb 8.1 L
Hct 25.1 L
Plt Count 167
Sodium 133 L
Potassium 4.6
Chloride 105
Carbon Dioxide 28
BUN 28 H
Creatinine 0.8
Glucose 90
Calcium 9.0
Vital Signs:
Vital Signs
Temp Pulse Resp BP Pulse Ox
98.1 F 65 18 124/54 91
02/14/25 23:00 02/14/25 23:00 02/14/25 23:00 02/15/25 03:00 02/14/25 23:00
I&O
02/14/25 02/15/25 02/16/25
06:59 06:59 06:59
Intake Total 1740 / 1740 660 / 660
Output Total 160 / 160
Balance 1580 / 1580 660 / 660
[2025-02-15] MEDS: ASPIRIN 325 MG PO (09:38)
[2025-02-15] MEDS: FARXIGA 10 MG PO (09:38)
[2025-02-15] MEDS: NEURONTIN 100 MG PO ×2 (09:39→19:53)
[2025-02-15] MEDS: SENOKOT 17.2 MG PO (09:39)
[2025-02-15] MEDS: TYLENOL 650 MG PO ×4 (09:39→19:53)
[2025-02-15] MEDS: NEURONTIN 300 MG PO ×2 (09:39→19:52)
[2025-02-15] MEDS: TENORMIN 25 MG PO ×2 (09:39→20:06)
[2025-02-15] MEDS: CYMBALTA DELAYED RELEASE 60 MG PO (09:39)
[2025-02-15] MEDS: LIDOCAINE 4% PATCH 1 PATCH TOPICAL (09:40)
[2025-02-15] MEDS: NOVOLOG FLEXPEN-LOW RESISTANCE SC (09:40)
[2025-02-15] MEDS: COLACE 100 MG PO (09:40)
[2025-02-15] MEDS: GLUCOPHAGE 1000 MG PO ×2 (09:40→19:52)
[2025-02-15] MEDS: NORVASC 10 MG PO (09:40)
[2025-02-15] MEDS: GLUCOTROL XL (EXTENDED RELEASE) 2.5 MG PO (09:40)
[2025-02-15] MEDS: ZESTRIL 20 MG PO ×2 (09:41→20:05)
--- NOTE | 2025-02-15 11:00 | CM ---
CM following re: discharge planning.
Reviewed pt's chart, met with pt.
Pt is an 89 year old female, admitted with primary dx of POD#1 Left femur retrograde nail fixation for periprosthetic fracture.
Pt reports she lives with and a grandson 2SH, 2 steps to enter. Pt reports she ambulates with a walker.
Pt and OT evaluations noted - SNF level of care recommended. Pt is aware, expressed her agreement and as number one choice pt requested [facility] and as an alternative - [facility]. A referral to above SNFs made. Awaiting for determination.
D/C plan: preferred SNF: [facility] or [facility]. pt will need an auth for SNF level of acre and an ambulance.
CM will follow to assist pt with discharge to a preferred SNF.
[2025-02-15 12:13] LABS: Glucose - Point of Care 174 mg/dl (70-99)
[2025-02-15] MEDS: NOVOLOG FLEXPEN-LOW RESISTANCE 1 UNITS SC ×2 (12:48→17:49)
--- NOTE | 2025-02-15 15:53 | PTCARENOTE ---
Pt on contact precautions for hx of ESBL, transferred to room 2125. report give to ALISSA Dunne.
--- NOTE | 2025-02-15 16:10 | PTCARENOTE ---
Received pt from [facility], pt AAOx3, VSS with o2 at 91% on 2L. Pt and daughter oriented to call light and room, pt resting comfortably in bed at this time. Dressing with old drainage on it, no c/o pain at this time.
[2025-02-15] MEDS: LIPITOR 20 MG PO (17:46)
[2025-02-15 18:14] LABS: Glucose - Point of Care 177 mg/dl (70-99)
[2025-02-15] MEDS: COLACE PO (19:51)
[2025-02-15] MEDS: SENOKOT PO (19:52)
[2025-02-15] MEDS: REMOVE LIDOCAINE PATCH 1 PATCH REMOVE (20:35)
[2025-02-16] MEDS: TYLENOL PO ×3 (00:06→23:58)
--- NOTE | 2025-02-16 07:47 | PTCARENOTE ---
During bedside report with major RN, pt found to have removed an IV & all 4 Aquacel dressings. When asked about this, pt has no recollection of taking off dressings or removing IV. Pt AAOx2-3 with some forgetfulness. O2 titrated overnight from
2-4L to maintain SpO2>93%. Patient denies SOB, Chest Pain or lightheadedness. No increased WOB. Major RN at bedside.
[2025-02-16 08:05] VITALS: BP 138/58
[2025-02-16] MEDS: TYLENOL 650 MG PO ×4 (08:52→19:46)
[2025-02-16] MEDS: ASPIRIN 325 MG PO (08:53)
[2025-02-16] MEDS: GLUCOPHAGE 1000 MG PO ×2 (08:54→19:46)
[2025-02-16] MEDS: CYMBALTA DELAYED RELEASE 60 MG PO (08:54)
[2025-02-16] MEDS: TENORMIN 25 MG PO ×2 (08:54→19:50)
[2025-02-16] MEDS: FARXIGA 10 MG PO (08:54)
[2025-02-16] MEDS: NEURONTIN 100 MG PO ×2 (08:54→19:46)
[2025-02-16] MEDS: ZESTRIL 20 MG PO ×2 (08:55→19:49)
[2025-02-16] MEDS: GLUCOTROL XL (EXTENDED RELEASE) 2.5 MG PO (08:55)
[2025-02-16] MEDS: SENOKOT PO ×2 (08:56→19:45)
[2025-02-16] MEDS: NORVASC 10 MG PO (08:56)
[2025-02-16] MEDS: NEURONTIN 300 MG PO ×2 (08:56→19:46)
[2025-02-16] MEDS: COLACE PO ×2 (08:57→19:43)
[2025-02-16] MEDS: LIDOCAINE 4% PATCH TOPICAL (08:57)
[2025-02-16] MEDS: NOVOLOG FLEXPEN-LOW RESISTANCE SC ×3 (09:55→17:23)
--- NOTE | 2025-02-16 10:15 | W.PN.HOSP.TC ---
Today's Communication/Plan
-
see plan
Assessment / Plan
Assessment / Plan
Gen: NAD, Awake and alert
Eyes: EOMI, PERRLA, no scleral icterus.
Neck: supple.
CV: remains RRR, +S1/S2, 2/6 systolic murmur
Resp: CTAB anteriorly, no rales, wheezes, or rhonchi.
Skin: No rashes.
Neuro: CN 2-12 intact, non-focal.
Psych: Normal mood and affect.
L femur Xray: Acute, displaced fracture through the midshaft of the LEFT femur.
ECG (read by me): NSR @ 67, nl axis, RBBB, QTc 475ms, no acute ST changes
CXR: Right lung base opacity, pneumonia versus atelectasis either in the right middle lobe or right lower lobe. Minor atelectasis in the medial left lung base. No pneumothorax or congestive heart failure. Nondisplaced right lateral seventh rib
fracture. Displaced lateral right eighth and ninth rib fractures, with displacement up to 7 mm.
Abd Xray: Mild to moderate amount of gas within small and large bowel. However, no disproportionate or gross dilatation. Nondisplaced lateral right seventh rib fracture and displaced lateral right eighth through 10th rib fractures. Age indeterminant
mild to moderate compression deformity of T9. Questionable mild age indeterminate diminished stature of T10 and T11. Advanced bilateral hip arthritis, right greater than left, with protrusio acetabulum. Similar prior examination.
Acute traumatic L femur fx:
-also suspect underlying osteoporosis (at age 89) that contributed to the patient's femur fracture
-s/p 02/13 Gio placement to the left femoral shaft fracture-22 modifier
-pain control
R-sided rib fxs:
-accounts for RUQ abd pain
-acute hypoxic resp insufficiency due to splinting, on 4L NC O2 currently, will ask RN to wean
-IS
-place Lidoderm patch
Acute blood loss anemia due to surgery:
-trend Hb (now stable)
-transfuse for Hb < 7
Other problems:
DM2: a1c 6.6%, diabetic diet/SSI/accuchecks, cont home Metformin/Glipizide/Jardiance
Essential HTN: cont Norvasc/Atenolol/lisinopril
HLD: cont statin
FULL/Lovenox
Dispo: pending ability to wean O2
Anticipated Discharge: Today
Subjective/Interval History
-
Date of Service: February 16, 2025
Denies SOB.
Objective Data
-
Vital Signs:
Vital Signs
Temp Pulse Resp BP Pulse Ox
98.7 F 69 15 138/58 94
02/16/25 08:05 02/16/25 08:05 02/16/25 08:05 02/16/25 08:05 02/16/25 08:05
I&O
02/15/25 02/16/25 02/17/25
06:59 06:59 06:59
Intake Total 660 / 660 980 / 980
Balance 660 / 660 980 / 980
[2025-02-16 10:34] VITALS: BP 157/61; PULSE 68; O2SAT 94
[2025-02-16 10:43] LABS: Hematocrit 26.1 % (37.0-47.0); Hemoglobin 8.2 g/dL (12.0-16.0); Mean Corp Hgb Conc. 31.4 g/dL (33.0-37.0); Mean Corpuscular Volume 96.3 fL (81.0-99.0); Platelet Count 189 10^3/uL (130-400); Red Cell Dist. Width 14.0 % (11.5-14.5)
[2025-02-16 11:11] LABS: Blood Urea Nitrogen 22 mg/dl (7-17); Calcium 9.3 mg/dl (8.4-10.2); Carbon Dioxide 26 mmol/L (22-30); Chloride 103 mmol/L (98-107); Estimated Creatinine Clearance 51 ml/min; Glucose 150 mg/dl (70-99); Potassium 4.6 mmol/L (3.5-5.1); Sodium 132 mmol/L (135-145); eGFR > 60.00
--- NOTE | 2025-02-16 13:57 | CM ---
Patient's SNF site preference is [facility]; referral was accepted pending bed availability; spoke w/ Katie @ facility via phone; no female bed available today or tomorrow; case management will need to check status on Tuesday
Plan: Discharge to SNF pending bed availability and authorization approval
[2025-02-16 14:36] LABS: Glucose - Point of Care 221 mg/dl (70-99)
[2025-02-16 14:36] LABS: Glucose - Point of Care 144 mg/dl (70-99)
[2025-02-16 14:36] LABS: Glucose - Point of Care 123 mg/dl (70-99)
[2025-02-16 15:36] VITALS: BP 128/52
[2025-02-16] MEDS: LIPITOR 20 MG PO (16:45)
[2025-02-16] MEDS: REMOVE LIDOCAINE PATCH REMOVE (19:44)
[2025-02-16 22:16] LABS: Glucose - Point of Care 114 mg/dl (70-99)
[2025-02-16 23:00] VITALS: BP 131/46
[2025-02-17] MEDS: TYLENOL PO ×2 (03:16→14:42)
[2025-02-17] MEDS: ROXICODONE 5 MG PO (03:33)
--- NOTE | 2025-02-17 05:02 | PTCARENOTE ---
Addendum entered by Glenn Bella RN 02/17/25 06:17:
Patient titrated back up to 3L O2-unable to maintain SpO2>90% with 1/2L. Patient remains asymptomatic at this time.
Original Note:
Attempt to wean patient off O2 throughout night. Titrated from 2L to 1L O2 w/ SpO2 of 94%. Patient maintaining SpO2 of 86-88& on RA. O2 reapplied at 1L w/ SpO2 of 92-95%. Patient reeducated on IS use and importance of ambulating OOB. Patient
agreeable to this-instructed to use IS q1h.
[2025-02-17 07:00] VITALS: BP 138/46
[2025-02-17 07:13] LABS: Hematocrit 24.3 % (37.0-47.0); Hemoglobin 7.9 g/dL (12.0-16.0); Mean Corp Hgb Conc. 32.5 g/dL (33.0-37.0); Mean Corpuscular Volume 94.2 fL (81.0-99.0); Platelet Count 223 10^3/uL (130-400); Red Cell Dist. Width 13.8 % (11.5-14.5)
[2025-02-17 07:24] LABS: Glucose - Point of Care 104 mg/dl (70-99)
[2025-02-17 07:53] LABS: Blood Urea Nitrogen 21 mg/dl (7-17); Calcium 9.2 mg/dl (8.4-10.2); Carbon Dioxide 27 mmol/L (22-30); Chloride 106 mmol/L (98-107); Estimated Creatinine Clearance 60 ml/min; Glucose 104 mg/dl (70-99); Potassium 4.5 mmol/L (3.5-5.1); Sodium 134 mmol/L (135-145); eGFR > 60.00
--- NOTE | 2025-02-17 08:20 | W.PN.HOSP.TC ---
Today's Communication/Plan
-
see plan
Assessment / Plan
Assessment / Plan
Gen: remains NAD, Awake and alert
Eyes: EOMI, PERRLA, no scleral icterus.
Neck: supple.
CV: continues to remain RRR, +S1/S2, 2/6 systolic murmur
Resp: remains CTAB anteriorly, no rales, wheezes, or rhonchi.
Skin: No rashes.
Neuro: CN 2-12 intact, non-focal.
Psych: Normal mood and affect.
L femur Xray: Acute, displaced fracture through the midshaft of the LEFT femur.
ECG (read by me): NSR @ 67, nl axis, RBBB, QTc 475ms, no acute ST changes
CXR: Right lung base opacity, pneumonia versus atelectasis either in the right middle lobe or right lower lobe. Minor atelectasis in the medial left lung base. No pneumothorax or congestive heart failure. Nondisplaced right lateral seventh rib
fracture. Displaced lateral right eighth and ninth rib fractures, with displacement up to 7 mm.
Abd Xray: Mild to moderate amount of gas within small and large bowel. However, no disproportionate or gross dilatation. Nondisplaced lateral right seventh rib fracture and displaced lateral right eighth through 10th rib fractures. Age indeterminant
mild to moderate compression deformity of T9. Questionable mild age indeterminate diminished stature of T10 and T11. Advanced bilateral hip arthritis, right greater than left, with protrusio acetabulum. Similar prior examination.
Acute traumatic L femur fx:
-also suspect underlying osteoporosis (at age 89) that contributed to the patient's femur fracture
-s/p 02/13 Gio placement to the left femoral shaft fracture-22 modifier
-pain control
R-sided rib fxs:
-accounts for RUQ abd pain
-acute hypoxic resp insufficiency likely due to splinting, was on 4L NC O2, now weaned to 3L NC O2
-encourage IS
-cont Lidoderm patch
-Patient denies chest pain with inspiration and her inspiratory effort is good at the times I examine her. I still suspect that her acute hypoxemic respiratory insufficiency is likely due to splinting but considering recent surgery we will check
CTA chest.
Acute blood loss anemia due to surgery:
-trend Hb (now stable, post-op range 7.9-8.5)
-transfuse for Hb < 7
Other problems:
DM2: a1c 6.6%, diabetic diet/SSI/accuchecks, cont home Metformin/Glipizide/Jardiance
Essential HTN: cont Norvasc/Atenolol/lisinopril
HLD: cont statin
FULL/Lovenox
Anticipated Discharge: Within 24 hours
Subjective/Interval History
-
Date of Service: February 17, 2025
Denies SOB.
Objective Data
-
Labs:
Laboratory Results
02/17/25
07:00
WBC 10.7
Hgb 7.9 L
Hct 24.3 L
Plt Count 223
Sodium 134 L
Potassium 4.5
Chloride 106
Carbon Dioxide 27
BUN 21 H
Creatinine 0.6
Glucose 104 H
Calcium 9.2
Vital Signs:
Vital Signs
Temp Pulse Resp BP Pulse Ox
98.9 F 67 18 131/46 93
02/16/25 23:00 02/16/25 23:00 02/16/25 23:00 02/16/25 23:00 02/17/25 05:50
I&O
02/16/25 02/17/25 02/18/25
06:59 06:59 06:59
Intake Total 980 / 980
Balance 980 / 980
[2025-02-17] MEDS: NOVOLOG FLEXPEN-LOW RESISTANCE SC ×2 (08:43→12:35)
[2025-02-17] MEDS: NEURONTIN 300 MG PO ×2 (08:47→20:41)
[2025-02-17] MEDS: TENORMIN 25 MG PO ×2 (08:47→20:39)
[2025-02-17] MEDS: GLUCOPHAGE 1000 MG PO ×2 (08:48→20:41)
[2025-02-17] MEDS: NORVASC 10 MG PO (08:48)
[2025-02-17] MEDS: ZESTRIL 20 MG PO ×2 (08:48→20:41)
[2025-02-17] MEDS: TYLENOL 650 MG PO ×3 (08:48→20:41)
[2025-02-17] MEDS: ASPIRIN 325 MG PO (08:48)
[2025-02-17] MEDS: GLUCOTROL XL (EXTENDED RELEASE) 2.5 MG PO (08:48)
[2025-02-17] MEDS: CYMBALTA DELAYED RELEASE 60 MG PO (08:48)
[2025-02-17] MEDS: NEURONTIN 100 MG PO ×2 (08:48→20:40)
[2025-02-17] MEDS: LIDOCAINE 4% PATCH TOPICAL (08:49)
[2025-02-17] MEDS: SENOKOT PO ×2 (08:49→19:25)
[2025-02-17] MEDS: FARXIGA 10 MG PO (08:51)
[2025-02-17] MEDS: COLACE PO ×2 (08:53→19:25)
[2025-02-17 10:12] VITALS: BP 140/73; PULSE 73; O2SAT 89
[2025-02-17 11:55] LABS: Glucose - Point of Care 93 mg/dl (70-99)
[2025-02-17 15:00] VITALS: BP 107/40
[2025-02-17 17:26] LABS: Glucose - Point of Care 172 mg/dl (70-99)
[2025-02-17] MEDS: NOVOLOG FLEXPEN-LOW RESISTANCE 1 UNITS SC (17:51)
[2025-02-17] MEDS: LIPITOR 20 MG PO (17:55)
[2025-02-17] MEDS: REMOVE LIDOCAINE PATCH REMOVE (20:42)
[2025-02-17 21:10] LABS: Glucose - Point of Care 204 mg/dl (70-99)
[2025-02-18 00:16] VITALS: BP 114/51
[2025-02-18] MEDS: TYLENOL PO ×2 (01:05→12:47)
[2025-02-18] MEDS: TYLENOL 650 MG PO ×4 (04:49→20:00)
[2025-02-18 06:57] VITALS: BP 121/47
[2025-02-18 09:27] LABS: Glucose - Point of Care 132 mg/dl (70-99)
[2025-02-18] MEDS: NOVOLOG FLEXPEN-LOW RESISTANCE SC ×2 (09:28→12:46)
[2025-02-18] MEDS: ASPIRIN 325 MG PO (09:28)
[2025-02-18] MEDS: NEURONTIN 100 MG PO ×2 (09:29→20:00)
[2025-02-18] MEDS: TENORMIN 25 MG PO ×2 (09:29→20:05)
[2025-02-18] MEDS: COLACE PO ×2 (09:29→20:00)
[2025-02-18] MEDS: SENOKOT PO ×2 (09:30→20:01)
[2025-02-18] MEDS: CYMBALTA DELAYED RELEASE 60 MG PO (09:30)
[2025-02-18] MEDS: FARXIGA 10 MG PO (09:30)
[2025-02-18] MEDS: GLUCOPHAGE 1000 MG PO ×2 (09:30→20:00)
[2025-02-18] MEDS: LIDOCAINE 4% PATCH TOPICAL (09:31)
[2025-02-18] MEDS: NORVASC 10 MG PO (09:33)
[2025-02-18] MEDS: GLUCOTROL XL (EXTENDED RELEASE) 2.5 MG PO (09:33)
[2025-02-18] MEDS: ZESTRIL 20 MG PO ×2 (09:33→20:01)
[2025-02-18] MEDS: NEURONTIN 300 MG PO ×2 (09:33→20:00)
--- NOTE | 2025-02-18 11:49 | CM ---
Addendum entered by Pattie Muniz 02/18/25 13:57:
Patient accepted for transfer today to [facility]. CM will call to confirm with physician and then start auth. Patient daughter updated and she was concerned about patient confusion this am. CM will continue to follow for discharge planning needs.
PLan; pending physician assessment bed available will need to start auth
Original Note:
Patient seen at bedside, CM called to [facility] and await call back (called x3 with for salary and wage administrator), also called to [facility] and spoke with coordinator [phone]. Await call back from Liaison at [facility] today to confirm next available bed. CM will
continue to follow for discharge planning needs.
Plan;SNF pending bed availability; will need auth
[2025-02-18 11:51] LABS: Glucose - Point of Care 143 mg/dl (70-99)
[2025-02-18 13:32] VITALS: BP 126/49; BP 135/52; PULSE 67; O2SAT 93
[2025-02-18 13:39] VITALS: BP 126/49; PULSE 69; O2SAT 92
[2025-02-18 15:40] VITALS: BP 119/48
--- NOTE | 2025-02-18 16:14 | CM ---
Addendum entered by Pattie Muniz 02/19/25 08:04:
CM spoke with DON at [facility] due to family declining [facility] they have removed her from the que for admission.
Addendum entered by Pattie Muniz 02/18/25 16:49:
Patient daughter now declining [facility], CM clarified ambulance copay and daughter talking to physician about [facility]. CM updated [facility] of plan change.
Original Note:
Auth approved by Susie #[id number] and maria elena for 02/18-02/22, next review date 02/22 and call to [phone]. Ambulance copay 225$ and auth is [id number].
CM called to SNF and update provided Please call report to [phone]/fax [phone]. CM will provide transportation forms to rn unit manager for ambulance set up. CM will continue to follow for discharge planning needs.
Plan; transfer to SNF;
--- NOTE | 2025-02-18 16:15 | W.PN.HOSP.TC ---
Today's Communication/Plan
-
stable for dc to SNF
Assessment / Plan
Assessment / Plan
89F with DM2, HTN, HLD, p/w L femur fracture.
Acute traumatic L femur fx
-suspect underlying osteoporosis contributed
-s/p 02/13 Gio placement to the left femoral shaft fracture
-pain control
R-sided rib fx
-accounts for RUQ abd pain
-cont Lidoderm patch
Acute hypoxic resp insufficiency
likely due to splinting, was on 4L NC O2, now weaned to 3L NC O2
CTA chest performed, negative for PE, +BLL consolidations likely atelectasis
continue IS
Acute blood loss anemia due to surgery
-trend Hb (now stable, post-op range 7.9-8.5)
-transfuse for Hb < 7
Multinodular goiter
check TSH/T4
DM2 with neuropathy
a1c 6.6%
diabetic diet/SSI/accuchecks
cont home Metformin/Glipizide/Jardiance and gabapentin
HTN
BP controlled, cont Norvasc/Atenolol/lisinopril
HLD
statin
DVT ppx
Lovenox
Anticipated Discharge: Within 24 hours
Subjective/Interval History
-
Date of Service: February 18, 2025
Upset that she is on contact isolation due to h/o ESBL.
Objective Data
-
Labs:
Laboratory Results
02/17/25
07:00
WBC 10.7
Hgb 7.9 L
Hct 24.3 L
Plt Count 223
Sodium 134 L
Potassium 4.5
Chloride 106
Carbon Dioxide 27
BUN 21 H
Creatinine 0.6
Glucose 104 H
Calcium 9.2
Vital Signs:
Vital Signs
Temp Pulse Resp BP Pulse Ox
98.7 F 70 16 121/47 94
02/18/25 06:57 02/18/25 09:29 02/18/25 06:57 02/18/25 09:29 02/18/25 08:00
I&O
02/17/25 02/18/25 02/19/25
06:59 06:59 06:59
Intake Total 720 / 720
Balance 720 / 720
Review of Systems
-
All other systems: Reviewed and negative
Physical Exam
-
General: No Apparent Distress
HEENT: Moist Mucous Membranes, Anicteric and PERRLA
Respiratory: Clear to Auscultation; Negative Wheezes, Rales or Rhonchi
Cardiac: Regular Rhythm and S1/S2; Negative Murmur, Rub or Gallop
GI: Soft, Nontender, Nondistended and Normal Bowel Sounds
Musculoskeletal: No Edema
Skin: Warm and Dry; Negative Rash, Ulcers or Lesions
Neuro: Awake and AO x 3
Hematologic / Lymphatic: No Lymphadenopathy
Psych: Calm
Data Reviewed
-
CT Scan: Report Reviewed by me
[2025-02-18] MEDS: LIPITOR 20 MG PO (18:06)
[2025-02-18] MEDS: NOVOLOG FLEXPEN-LOW RESISTANCE 1 UNITS SC (18:13)
[2025-02-18 18:18] LABS: Glucose - Point of Care 160 mg/dl (70-99)
[2025-02-18] MEDS: REMOVE LIDOCAINE PATCH REMOVE (20:06)
[2025-02-18 23:33] VITALS: BP 140/50
[2025-02-19] MEDS: TYLENOL PO ×3 (00:30→13:17)
[2025-02-19 01:02] LABS: Glucose - Point of Care 170 mg/dl (70-99)
[2025-02-19 06:57] LABS: Hematocrit 24.5 % (37.0-47.0); Hemoglobin 7.6 g/dL (12.0-16.0); Mean Corp Hgb Conc. 31.0 g/dL (33.0-37.0); Mean Corpuscular Volume 96.8 fL (81.0-99.0); Platelet Count 356 10^3/uL (130-400); Red Cell Dist. Width 13.9 % (11.5-14.5)
[2025-02-19 07:07] VITALS: BP 119/83
[2025-02-19 07:16] LABS: Blood Urea Nitrogen 15 mg/dl (7-17); Calcium 9.2 mg/dl (8.4-10.2); Carbon Dioxide 27 mmol/L (22-30); Chloride 106 mmol/L (98-107); Estimated Creatinine Clearance 60 ml/min; Glucose 142 mg/dl (70-99); Potassium 4.3 mmol/L (3.5-5.1); Sodium 138 mmol/L (135-145); eGFR > 60.00
[2025-02-19] MEDS: TENORMIN 25 MG PO ×2 (07:53→19:48)
[2025-02-19] MEDS: ROXICODONE 5 MG PO (07:53)
[2025-02-19] MEDS: FARXIGA 10 MG PO (07:53)
[2025-02-19] MEDS: NORVASC 10 MG PO (07:53)
[2025-02-19] MEDS: GLUCOPHAGE 1000 MG PO ×2 (07:54→19:47)
[2025-02-19] MEDS: ASPIRIN 325 MG PO (07:54)
[2025-02-19] MEDS: NOVOLOG FLEXPEN-LOW RESISTANCE 1 UNITS SC ×2 (07:54→18:23)
[2025-02-19] MEDS: NEURONTIN 100 MG PO ×2 (07:54→19:47)
[2025-02-19] MEDS: CYMBALTA DELAYED RELEASE 60 MG PO (07:54)
[2025-02-19] MEDS: NEURONTIN 300 MG PO ×2 (07:54→19:47)
[2025-02-19] MEDS: TYLENOL 650 MG PO ×3 (07:54→19:48)
[2025-02-19] MEDS: COLACE PO ×2 (07:55→19:35)
[2025-02-19] MEDS: GLUCOTROL XL (EXTENDED RELEASE) 2.5 MG PO (07:56)
[2025-02-19] MEDS: LIDOCAINE 4% PATCH TOPICAL (07:56)
[2025-02-19] MEDS: ZESTRIL 20 MG PO ×2 (07:56→19:48)
[2025-02-19 07:58] LABS: Glucose - Point of Care 178 mg/dl (70-99)
[2025-02-19] MEDS: SENOKOT PO ×2 (09:57→19:36)
--- NOTE | 2025-02-19 11:58 | W.PN.HOSP.TC ---
Today's Communication/Plan
-
stable for dc to SNF, pending PM&R eval for [facility] at family's request
Assessment / Plan
Assessment / Plan
89F with DM2, HTN, HLD, p/w L femur fracture.
Acute traumatic L femur fx
-suspect underlying osteoporosis contributed
-s/p 02/13 Gio placement to the left femoral shaft fracture
-pain control
PM&R consult [facility] eval, at family's request
R-sided rib fx
-accounts for RUQ abd pain
-cont Lidoderm patch
Acute hypoxic resp insufficiency
likely due to splinting, was on 4L NC O2, now weaned to 3L NC O2
CTA chest performed, negative for PE, +BLL consolidations likely atelectasis
continue IS
Acute blood loss anemia due to surgery
Baseline hemoglobin 13.3
Trend Hb, have gone down to 7.6
transfuse for Hb < 7
Multinodular goiter
TSH WNL
DM2 with neuropathy
a1c 6.6%
diabetic diet/SSI/accuchecks
cont home Metformin/Glipizide/Jardiance and gabapentin
HTN
BP controlled, cont Norvasc/Atenolol/lisinopril
HLD
statin
DVT ppx
Lovenox
Anticipated Discharge: Within 24 hours
Subjective/Interval History
-
Date of Service: February 19, 2025
Patient denies any acute issues overnight
Objective Data
-
Labs:
Laboratory Results
02/19/25
05:56
WBC 11.1 H
Hgb 7.6 L
Hct 24.5 L
Plt Count 356 D
Sodium 138
Potassium 4.3
Chloride 106
Carbon Dioxide 27
BUN 15
Creatinine 0.6
Glucose 142 H
Calcium 9.2
Vital Signs:
Vital Signs
Temp Pulse Resp BP Pulse Ox
98.6 F 74 22 119/83 90
02/19/25 07:07 02/19/25 07:53 02/19/25 07:07 02/19/25 07:53 02/19/25 07:07
I&O
02/18/25 02/19/25 02/20/25
06:59 06:59 06:59
Intake Total 720 / 720 420 / 420
Balance 720 / 720 420 / 420
Review of Systems
-
All other systems: Reviewed and negative
Physical Exam
-
General: No Apparent Distress
HEENT: Moist Mucous Membranes, Anicteric and PERRLA
Respiratory: Clear to Auscultation; Negative Wheezes, Rales or Rhonchi
Cardiac: Regular Rhythm and S1/S2; Negative Murmur, Rub or Gallop
GI: Soft, Nontender, Nondistended and Normal Bowel Sounds
Musculoskeletal: No Edema
Skin: Warm and Dry; Negative Rash, Ulcers or Lesions
Neuro: Awake and AO x 3
Hematologic / Lymphatic: No Lymphadenopathy
Psych: Calm
Data Reviewed
-
CT Scan: Report Reviewed by me
[2025-02-19] MEDS: NOVOLOG FLEXPEN-LOW RESISTANCE SC (13:17)
[2025-02-19 14:56] VITALS: BP 117/50; BP 134/61; PULSE 73; O2SAT 90
[2025-02-19 15:02] VITALS: BP 134/61
[2025-02-19 15:03] VITALS: BP 116/46
--- NOTE | 2025-02-19 16:52 | PN.CDI ---
CDI
- -
CDI:
Physician Documentation Request
Admit Date: 02/13/25 12:42
Dear Doctor Valeriy,
Please review the following and provide your response in the progress notes.
Clinical Indicators:
- Patient admit for left periprosthetic femur fracture
- 02/13 Op Report 'Gio placement to the left femoral shaft fracture'
- 'doubled the length of the case'
- Patient weaned down to 1-2L O2
- 02/17 RN note 'Patient titrated back up to 3L O2-unable to maintain SpO2>90%'
- Documented 4-5L O2, pulse ox > 89%
- 02/19 PN 'Acute hypoxic resp insufficiency...likely due to splinting'
Please clarify which of the following accurately represents the patient's respiratory status following surgery:
Acute pulmonary insufficiency (following surgery)
Hypoxia
Other (please specify)
Additional information for Pulmonary Insufficiency:
Consider when patients require buttermaker continuous churn oxygen therapy postoperatively
Weaned off oxygen initially then requiring supplemental oxygen
No other definitive diagnosis to support the need for oxygen (COPD exac, CHF etc.)
Unable to wean from vent
When criteria for respiratory failure not present
May extend stay or require additional resources; may need home O2
Additional information for Respiratory Failure:
Recognized criteria for Respiratory Failure (Source: [facility] Hospitalist Jan 2013)
ABGs: (1 or more) Symptoms Indicate:
1. p)2 <60 or RA SPO2 <91% on RA 1. Tachypnea, SOB, dyspnea 1. Type as:
2. pCO2 50 and pH <7.35 2. Use of accessory muscles a. Hypoxic
3. pO2 decrease of pCO2 increase by 3. Pallor or cyanosis b. Hypercapnic
10 mmHg from baseline if known 4. Anxiety or restlessness 2. If due to procedure or due to another cause
5. Unable to speak in full sentences
Supplemental O2 of > 40% Intubation is not required
Use of terms such as suspected, likely, concern for, or probable (associated with a specific diagnosis that is being evaluated, monitored, or treated as if it exists) are acceptable and can be coded in the inpatient setting, when documented at the
time of discharge.
Thank you,
Karen Stewart RN
CDI Specialist
Please use your independent medical judgment in providing your response.
[2025-02-19 17:17] LABS: Glucose - Point of Care 144 mg/dl (70-99)
[2025-02-19 17:17] LABS: Glucose - Point of Care 195 mg/dl (70-99)
[2025-02-19] MEDS: LIPITOR 20 MG PO (18:43)
[2025-02-19] MEDS: REMOVE LIDOCAINE PATCH REMOVE (19:36)
[2025-02-19 23:04] VITALS: BP 130/55
[2025-02-20] MEDS: TYLENOL 650 MG PO ×7 (00:01→23:55)
[2025-02-20] MEDS: AMBIEN 5 MG PO (00:01)
[2025-02-20 07:00] VITALS: BP 155/61
[2025-02-20 07:53] LABS: Glucose - Point of Care 122 mg/dl (70-99)
[2025-02-20 07:53] LABS: Glucose - Point of Care 130 mg/dl (70-99)
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
[2025-02-20] MEDS: NOVOLOG FLEXPEN-LOW RESISTANCE SC ×2 (09:13→18:04)
[2025-02-20] MEDS: LIDOCAINE 4% PATCH 1 PATCH TOPICAL (09:14)
[2025-02-20] MEDS: GLUCOTROL XL (EXTENDED RELEASE) 2.5 MG PO (09:15)
[2025-02-20] MEDS: NEURONTIN 100 MG PO ×2 (09:15→20:00)
[2025-02-20] MEDS: ASPIRIN 325 MG PO (09:15)
[2025-02-20] MEDS: NEURONTIN 300 MG PO ×2 (09:15→20:22)
[2025-02-20] MEDS: TENORMIN 25 MG PO ×2 (09:15→20:18)
[2025-02-20] MEDS: CYMBALTA DELAYED RELEASE 60 MG PO (09:15)
[2025-02-20] MEDS: FARXIGA 10 MG PO (09:15)
[2025-02-20] MEDS: SENOKOT 17.2 MG PO ×2 (09:16→20:01)
[2025-02-20] MEDS: COLACE 100 MG PO ×2 (09:16→20:02)
[2025-02-20] MEDS: NORVASC 10 MG PO (09:16)
[2025-02-20] MEDS: ZESTRIL 20 MG PO ×2 (09:16→20:18)
[2025-02-20] MEDS: GLUCOPHAGE 1000 MG PO ×2 (09:16→20:22)
--- NOTE | 2025-02-20 09:46 | W.PN.HOSP.TC ---
Addendum entered and electronically signed by María Crooks MD 02/20/25 13:46:
for CDI: hypoxic
Original Note:
Today's Communication/Plan
-
stable for dc to SNF, pending PM&R eval for [facility] at family's request
Assessment / Plan
Assessment / Plan
89F with DM2, HTN, HLD, p/w L femur fracture.
Acute traumatic L femur fx
-suspect underlying osteoporosis contributed
-s/p 02/13 Gio placement to the left femoral shaft fracture
-pain control
PM&R consult [facility] eval, at family's request
R-sided rib fx
-accounts for RUQ abd pain
-cont Lidoderm patch
Acute hypoxic resp insufficiency
likely due to splinting, was on 4L NC O2, now weaned to 3L NC O2
CTA chest performed, negative for PE, +BLL consolidations likely atelectasis
continue IS
Acute blood loss anemia due to surgery
Baseline hemoglobin 13.3
Trend Hb, have gone down to 7.6
transfuse for Hb < 7
Multinodular goiter
TSH WNL
DM2 with neuropathy
a1c 6.6%
diabetic diet/SSI/accuchecks
cont home Metformin/Glipizide/Jardiance and gabapentin
HTN
BP controlled, cont Norvasc/Atenolol/lisinopril
HLD
statin
DVT ppx
Lovenox
Anticipated Discharge: Within 24 hours
Subjective/Interval History
-
Date of Service: February 20, 2025
Patient denies any acute issues overnight, tech at bedside changing her
Objective Data
-
Labs:
Laboratory Results
02/19/25
05:56
WBC 11.1 H
Hgb 7.6 L
Hct 24.5 L
Plt Count 356 D
Sodium 138
Potassium 4.3
Chloride 106
Carbon Dioxide 27
BUN 15
Creatinine 0.6
Glucose 142 H
Calcium 9.2
Vital Signs:
Vital Signs
Temp Pulse Resp BP Pulse Ox
98.7 F 75 16 155/61 93
02/20/25 07:00 02/20/25 07:00 02/20/25 07:00 02/20/25 07:00 02/20/25 07:00
I&O
02/19/25 02/20/25 02/21/25
06:59 06:59 06:59
Intake Total 420 / 420 720 / 720
Balance 420 / 420 720 / 720
Review of Systems
-
All other systems: Reviewed and negative
Physical Exam
-
General: No Apparent Distress
HEENT: Moist Mucous Membranes, Anicteric and PERRLA
Respiratory: Clear to Auscultation; Negative Wheezes, Rales or Rhonchi
Cardiac: Regular Rhythm and S1/S2; Negative Murmur, Rub or Gallop
GI: Soft, Nontender, Nondistended and Normal Bowel Sounds
Musculoskeletal: No Edema
Skin: Warm and Dry; Negative Rash, Ulcers or Lesions
Neuro: Awake and AO x 3
Hematologic / Lymphatic: No Lymphadenopathy
Psych: Calm
Data Reviewed
-
CT Scan: Report Reviewed by me
[2025-02-20 12:35] VITALS: BMI 26.6
[2025-02-20 13:26] LABS: Glucose - Point of Care 180 mg/dl (70-99)
[2025-02-20] MEDS: NOVOLOG FLEXPEN-LOW RESISTANCE 1 UNITS SC (13:45)
[2025-02-20 15:00] VITALS: BP 122/47
--- NOTE | 2025-02-20 16:33 | CM ---
Family requested referral to [facility]. Pt accepted for admission per response in [facility]. Message sent to Avelina requesting NPIs for insurance authorization.
CM to follow up in AM.
[2025-02-20 16:59] VITALS: BP 134/49; PULSE 73; O2SAT 95
[2025-02-20] MEDS: LIPITOR 20 MG PO (18:04)
[2025-02-20] MEDS: REMOVE LIDOCAINE PATCH 1 PATCH REMOVE (20:19)
[2025-02-20 22:18] LABS: Glucose - Point of Care 129 mg/dl (70-99)
[2025-02-20 22:18] LABS: Glucose - Point of Care 183 mg/dl (70-99)
[2025-02-20 22:18] LABS: Glucose - Point of Care 134 mg/dl (70-99)
[2025-02-20 22:49] VITALS: BP 146/46
[2025-02-20] MEDS: DESENEX/MITRAZOL/ZEASORB 1 APPLIC TOPICAL (23:55)
[2025-02-21] MEDS: TYLENOL 650 MG PO ×3 (04:43→13:08)
[2025-02-21 07:00] VITALS: BP 144/54
[2025-02-21 07:17] LABS: Glucose - Point of Care 127 mg/dl (70-99)
[2025-02-21] MEDS: NOVOLOG FLEXPEN-LOW RESISTANCE SC ×2 (07:34→13:09)
[2025-02-21] MEDS: LIDOCAINE 4% PATCH 1 PATCH TOPICAL (08:52)
[2025-02-21] MEDS: COLACE PO (09:00)
[2025-02-21] MEDS: ZESTRIL 20 MG PO (09:01)
[2025-02-21] MEDS: NEURONTIN 100 MG PO (09:01)
[2025-02-21] MEDS: ASPIRIN 325 MG PO (09:01)
[2025-02-21] MEDS: NEURONTIN 300 MG PO (09:01)
[2025-02-21] MEDS: GLUCOPHAGE 1000 MG PO (09:01)
[2025-02-21] MEDS: TENORMIN 25 MG PO (09:01)
[2025-02-21] MEDS: FARXIGA 10 MG PO (09:01)
[2025-02-21] MEDS: CYMBALTA DELAYED RELEASE 60 MG PO (09:01)
[2025-02-21] MEDS: GLUCOTROL XL (EXTENDED RELEASE) 2.5 MG PO (09:02)
[2025-02-21] MEDS: SENOKOT PO (09:02)
[2025-02-21] MEDS: NORVASC 10 MG PO (09:02)
--- NOTE | 2025-02-21 09:04 | WOUNDNOTE ---
[facility] RN NOTE: Patient visited for new stage 2 PI of coccyx noted on HAP report. Spoke to RN, Sarah who recently moved patient to a chair and assessed buttocks and sacral/coccyx. 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
cleft. Sarah applied Calazime and did not note any open areas. Patient is on a Centrella Max Air and has good appetite. Patient found sitting on a chair with air cushion.
[2025-02-21 09:17] LABS: Hematocrit 27.0 % (37.0-47.0); Hemoglobin 8.6 g/dL (12.0-16.0); Mean Corp Hgb Conc. 31.9 g/dL (33.0-37.0); Mean Corpuscular Volume 97.1 fL (81.0-99.0); Platelet Count 488 10^3/uL (130-400); Red Cell Dist. Width 15.3 % (11.5-14.5)
[2025-02-21 09:40] LABS: Procalcitonin < 0.05 ng/ml (0.0-0.25)
[2025-02-21 11:19] VITALS: BP 134/55; PULSE 68; O2SAT 96
--- NOTE | 2025-02-21 11:30 | CON.PUL ---
Consultation
Consultation Request
Date/Time Consultation Requested: 02/21/2025
Date/Time Consultation Performed: 02/22/2024
Requesting Provider: Dr. Crooks
Performing Provider: Dr. Melvin Mustafa
Reason for Consultation: Abnormal CT chest
Medical History
-
History of Present Illness:
89-year-old woman with past medical history significant for type 2 diabetes, hypertension, hyperlipidemia initially admitted on 02/13/2025 after sustaining a mechanical fall with subsequent left femur periprosthetic fracture. Subsequently underwent
ORIF on 02/13/2025.
After the fall also she sustained right sided chest trauma. She had difficulty breathing. Found to have a nondisplaced right sided rib fracture and 9--explain her chest pain.
Subsequently developed mild hypoxemic respiratory insufficiency. Requiring low rate supplemental oxygen. Underwent CT angiogram that showed a small right and minimal left pleural effusion. Moderate amount of subpleural airspace consolidation.
Mild cardiomegaly. We were consulted To evaluate abnormal CT chest----does have mild leukocytosis. Denies any cough, wheezing or phlegm production. Afebrile.
Right sided discomfort improved.
Patient denies any shortness of breath at rest.
She has been contemplating to transfer to [place] rehab.
Past Medical History
Past Medical History: Other (See assessment and plan)
Social History
Tobacco: Non-smoker
Alcohol: None
Drug: None
Family History
Family History: Reviewed & Not Pertinent
Allergies / Home Medications
Allergies
Allergy/AdvReac Type Severity Reaction Status Date / Time
No Known Allergies Allergy Verified 02/13/25 07:03
Home Medications
�Medication �Instructions �Recorded �Confirmed �Last Taken �Type
zolpidem 5 mg tablet 5 mg PO HSPRN PRN insomnia 12/05/11 02/13/25 02/03/21 21:30 History
atorvastatin 20 mg tablet 20 mg PO QPM High cholesterol 09/06/12 02/13/25 02/12/25 History
atenolol 50 mg tablet 25 mg PO BID Blood pressure 10/01/20 02/13/25 02/12/25 History
duloxetine 60 mg capsule,delayed 60 mg PO DAILY Neurological 10/01/20 02/13/25 02/12/25 History
release Condition
lisinopril 20 mg tablet 20 mg PO BID Blood pressure ##0 02/05/21 02/13/25 02/12/25 Rx
amlodipine 10 mg tablet (Norvasc) 10 mg PO DAILY Blood Pressure 02/13/25 02/13/25 02/12/25 History
empagliflozin 10 mg tablet 10 mg PO DAILY Diabetes 02/13/25 02/13/25 02/12/25 History
(Jardiance)
gabapentin 100 mg capsule 100 mg PO BID Neurological 02/13/25 02/13/25 02/12/25 History
Condition
gabapentin 300 mg capsule 300 mg PO BID Neurological 02/13/25 02/13/25 02/12/25 History
Condition
glipizide 2.5 mg tablet, extended 2.5 mg PO DAILY Diabetes 02/13/25 02/13/25 02/12/25 History
release 24 hr
metformin 1,000 mg tablet 1,000 mg PO BID Diabetes 02/13/25 02/13/25 02/12/25 History
acetaminophen 325 mg tablet 650 mg (2 x 325 mg) PO Q4HWA #0 02/18/25 Unknown Rx
tabs
aspirin 325 mg tablet 325 mg PO DAILY #0 tabs 02/18/25 Unknown Rx
docusate sodium 100 mg capsule 100 mg PO BID #0 caps 02/18/25 Unknown Rx
oxycodone 5 mg tablet 5 mg PO Q4HPRN PRN mild pain #0 02/18/25 Unknown Rx
tabs
sennosides 8.6 mg tablet (Eli-raquel) 17.2 mg (2 x 8.6 mg) PO BID #0 tabs 02/18/25 Unknown Rx
Review of Systems
-
History Source: Patient
All other systems: Negative unless noted
Vitals / Labs / Diagnostic Testing
Vital Signs
Temp Pulse Resp BP Pulse Ox
98.4 F 66 16 144/54 95
02/21/25 07:00 02/21/25 07:00 02/21/25 07:00 02/21/25 09:01 02/21/25 09:50
Lab Data
02/21/25 09:01
02/19/25 05:56
Microbiology
02/20/25 16:08 Feces/Stool C. difficile [facility]DH Antigen & Toxins - Final
Negative for toxigenic C.difficile
Diagnostic Testing:
Physical Exam
-
HEENT: Normocephalic
Cardiovascular: S1/S2
Respiratory: Clear and Non-Labored Respirations
GI: Soft and Non Distended
Neurology: Awake and AO x 3
Skin: Warm
General: Comfortable
Assessment
-
89-year-old past medical history noted, initially admitted 02/14/2024 after sustaining a fall. Subsequent periprosthetic left femur fracture. Underwent ORIF during this hospital stay. Subsequently developed right sided chest pain. Discovered to
have rib fractures related to the fall. CT angiogram negative for pulmonary embolism. Bibasilar airspace opacities with minimal pleural effusion.
-
Acute hypoxemic respiratory insufficiency-currently on 3 L nasal cannula.
Abnormal CT chest: No evidence for pulmonary embolism.(Images personally reviewed)
1. Small right and minimal left pleural effusions.
2. Moderate amount of subpleural airspace consolidation in the lower lobes (right greater than left). Diagnostic possibilities are (1) compressive atelectasis or (2) pneumonia (if there are signs/symptoms of pulmonary infection).
3. Moderate calcific atherosclerotic plaque in the coronary arteries.
4. Mild cardiomegaly.
Acute blood loss anemia(initial hemoglobin was 13)
Status post fall: Left periprosthetic femur fracture status post ORIF 02/13/2025
Conditions present prior admission:
Type 2 diabetes ambulatory dysfunction ambulates with a walker at home
Diabetic neuropathy
Hypertension
Bilateral total knee replacement
Right femur fracture treated with plate and screw fixation in the past
Assessment and plan:
Suspect CAT scan abnormalities are related to hypoventilatory changes from splinting due to right sided rib fractures.
Alternatively some degree of lung contusion could be a possibility but less likely.
Leukocytosis likely reactive postsurgically and also acute blood loss.
Negative procalcitonin-makes bacterial infection less likely.
No indication for antibiotics
Currently afebrile.
No significant phlegm production
Does not appear toxic
-
Mildly hypoxemic-encourage incentive spirometer. Increase mobility.
Patient has no history of underlying pulmonary disease.
-
From pulmonary perspective, okay to discharge to rehab.
Hypoxemia should resolve with time.
-
Acute blood loss anemia-likely contributing to hypoxemia as well.
Transfuse as necessary
-
No additional recommendations at this point.
Hopefully can discharge soon to rehab.
[2025-02-21] MEDS: IMODIUM 2 MG PO (11:55)
[2025-02-21 13:24] LABS: Glucose - Point of Care 127 mg/dl (70-99)
[2025-02-21 13:29] VITALS: BP 130/54; BP 155/58; PULSE 66; O2SAT 95
--- NOTE | 2025-02-21 14:37 | CM ---
Addendum entered by Aurelia Hilario 02/21/25 15:30:
Authorization approved for Acute Rehab; start today, 02/21; next review 02/25, need to call #[phone]
Authorization# [id number]
Plan: Discharge to [facility] acute rehab
Report # [phone]

Original Note:
Per Attending, patient is stable for discharge.
Per Avelina (#[phone]) @ [facility] was able to accept today pending auth approval
Authorization for Acute Rehab submitted to insurance starting today; approval pending Medial Director Review
Pending Reference # [id number]
Avelina @ [facility] notified of pending auth approval via [employer]
Plan: Discharge to [facility] pending authorization approval
[2025-02-21 15:00] VITALS: BP 114/51
== END 2025-02-21 17:18 | DRG 481 ==
LOC: 2 NORTH 12:42
PROVIDERS: Orthopaedic Surgery; Physician Assistant Medical; ADMITTING PHYSICIAN Internal Medicine; ATTENDING PHYSICIAN Internal Medicine; CONSULT PHYSICIAN Internal Medicine Critical Care Medicine; EMERGENCY PHYSICIAN Emergency Medicine
PROC: 0QS906Z Reposition Left Femoral Shaft with Intramedullary Internal Fixation Device, Open Approach (ICD-10-PCS; 2025-02-13)
DX: M80.052A Age-related osteoporosis with current pathological fracture, left femur, initial encounter for fracture (principal); D62 Acute posthemorrhagic anemia; M97.12XA Periprosthetic fracture around internal prosthetic left knee joint, initial encounter; S22.41XA Multiple fractures of ribs, right side, initial encounter for closed fracture; W18.30XA Fall on same level, unspecified, initial encounter; I10 Essential (primary) hypertension; E11.40 Type 2 diabetes mellitus with diabetic neuropathy, unspecified; Z96.653 Presence of artificial knee joint, bilateral; D72.829 Elevated white blood cell count, unspecified; E78.5 Hyperlipidemia, unspecified; M16.0 Bilateral primary osteoarthritis of hip; M24.7 Protrusio acetabuli; M41.9 Scoliosis, unspecified; R09.02 Hypoxemia; Z79.82 Long term (current) use of aspirin; Z79.899 Other long term (current) drug therapy; Z87.891 Personal history of nicotine dependence
CPT/HCPCS: 71045; 71275; 72170; 73552; 74018; 76000; 80048; 82962; 83036; 84145; 84443; 85025; 85027; 85610; 85730; 86850; 86900; 86901; 87324; 87449; 93005; 96374; 97110; 97116; 97129; 97163; 97166; 97530; 97535; 99285; Q9967